=== PATIENT | male | born 1960 | race Caucasian/White ===

== ENCOUNTER 2019-07-16 04:49 | Emergency (ER) | payer OTHER ==
[~2019-07-16] VITALS: Ht 175.3 cm; Wt 105.7 kg
[2019-07-16 04:57] VITALS: Ht 175.3 cm; Wt 105.7 kg
[2019-07-16 06:47] VITALS: BP 146/91
== END 2019-07-16 06:47 | disposition home or self-care (01) ==
LOC: ED 04:49
DX: F10.20 Alcohol dependence, uncomplicated (principal); F41.9 Anxiety disorder, unspecified; F32.9 Major depressive disorder, single episode, unspecified; E78.00 Pure hypercholesterolemia, unspecified; E03.9 Hypothyroidism, unspecified; I10 Essential (primary) hypertension; Y90.9 Presence of alcohol in blood, level not specified
CPT/HCPCS: J1885

== ENCOUNTER 2019-07-17 01:49 | Emergency (ER) | payer OTHER ==
[~2019-07-17] VITALS: Ht 175.3 cm; Wt 107.0 kg
[2019-07-17 01:57] VITALS: Ht 175.3 cm; Wt 107.0 kg
[2019-07-17 04:25] VITALS: BP 142/84
== END 2019-07-17 05:19 | disposition home or self-care (01) ==
LOC: ED 01:49
DX: S00.03XA Contusion of scalp, initial encounter (principal); I10 Essential (primary) hypertension; F41.9 Anxiety disorder, unspecified; F32.9 Major depressive disorder, single episode, unspecified; E78.00 Pure hypercholesterolemia, unspecified; E03.9 Hypothyroidism, unspecified; W10.8XXA Fall (on) (from) other stairs and steps, initial encounter; Y93.89 Activity, other specified; Y92.89 Other specified places as the place of occurrence of the external cause; Y99.8 Other external cause status

== ENCOUNTER 2019-07-24 17:44 | Inpatient (IN) | payer OTHER ==
[~2019-07-24] VITALS: Ht 175.3 cm; Wt 103.4 kg
[2019-07-24 17:57] VITALS: Ht 175.3 cm; Wt 103.4 kg
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
--- NOTE | 2019-07-24 18:21 | NUR ---
AT BEDSIDE FOR MSE.
[2019-07-24 19:10] LABS: PLATELET COUNT 355 x10^3mcL (130-400)
[2019-07-24 19:14] LABS: RED CELL DISTRIBUTION WIDTH 15.1 % (11.5-14.5)
--- NOTE | 2019-07-24 19:23 | NUR ---
PROVIDED PT URINAL TO URINATE.
--- NOTE | 2019-07-24 19:34 | NUR ---
CALLED RX TO OBTAIN VALIUM 10MG, RX STATES IT IS UNABLE FROM [employer]. MADE AWARE AND WILL CHANGE ORDER.
--- NOTE | 2019-07-24 19:35 | NUR ---
PER NO ORDER FOR URINE SPECIMEN.
[2019-07-24 19:38] LABS: ALBUMIN 3.7 g/dL (3.4-5.0); ALKALINE PHOSPHATASE 127 U/L (46-116); ALT/SGPT 140 U/L (16-63); AST/SGOT 125 U/L (15-37); BILIRUBIN TOTAL 0.76 mg/dL (0.20-1.00); CALCIUM 8.1 mg/dL (8.5-10.1); CHLORIDE SERUM 99 mmol/L (98-107); CREATININE SERUM 0.9 mg/dL (0.7-1.3); GFR1 > 60 mL/min; GLUCOSE SERUM 131 mg/dL (74-106); SODIUM SERUM 140 mmol/L (136-145); TOTAL PROTEIN, SERUM 7.3 g/dL (6.4-8.2)
[2019-07-24 19:40] LABS: POTASSIUM SERUM 2.2 mmol/L (3.5-5.1)
[2019-07-24 19:43] LABS: CARBON DIOXIDE 31.2 mmol/L (21-32)
[2019-07-24] MEDS ORDERED: LISINOPRIL2.5 MG PO (20:37)
[2019-07-24] MEDS ORDERED: SYNTHROID0.05 MG PO (20:38)
[2019-07-24] MEDS ORDERED: SEROQUEL XR400 M1 PO (20:38)
[2019-07-24] MEDS ORDERED: ZOLOFT50 MG (20:38)
[2019-07-24] MEDS ORDERED: LOTREL1 CA2 PO (20:38)
[2019-07-24 21:01] LABS: CHOLESTEROL/HDL RATIO 7.5; MAGNESIUM 1.4 mg/dL (1.8-2.4)
--- NOTE | 2019-07-24 21:15 | NUR ---
REPORT GIVEN TO EL AT [id number] ON TELE FLOOR
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
--- NOTE | 2019-07-24 22:20 | NUR ---
MEDICATED PT WITH NORCO PO FOR MIGRANE (DULL; SHARP AT TIMES). WILL CONTINUE TO MONITOR. CALL LIGHT WITHIN REACH, BED IN LOWEST POSITION.
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
[2019-07-24 23:37] LABS: UA SPECIFIC GRAVITY 1.015 (1.005-1.035); microscopic required? YES; urine erythrocyte TRACE (NEGATIVE)
[2019-07-24 23:53] VITALS: BP 190/99
[2019-07-25 00:07] LABS: AMPHETAMINE QUAL UR NONE DETECTED (See below)
--- NOTE | 2019-07-25 05:00 | NUR ---
PT RESTED IN INTERVALS DURING SHIFT, NO ACUTE CHANGES OCCURRING OVERNIGHT. PT REMAINS PREOCCURPIED WITH HIS ANXIETY LEVEL, MEDICATED PT X2 WITH ATIVAN IVP 2MG. PT REPORTS IT DOES HELP ALTHOUGH STS " I KNOW ITS GOING TO COME BACK AND GET WORSE". PT NOTED WITH MINIMAL HAND TREMORS, SZ PRECUATIONS IN PLACE, HELD LIBRIUM PO LAST EVEN PER DR. YANG REQUEST. PT REMAINS NPO FOR US ABD, ALL COMFORT AND SAFETY MEASURES PROVIDED FOR, CALL LIGHT WTIHIN REACH, BED IN LOWEST POSITION, WILL CONTINUE TO MONITOR.
[2019-07-25 05:43] VITALS: BP 153/81
[2019-07-25 06:28] LABS: BASOPHIL % 0.9 % (0-2); PLATELET COUNT 369 x10^3mcL (130-400)
[2019-07-25 06:41] LABS: RED CELL DISTRIBUTION WIDTH 14.9 % (11.5-14.5)
[2019-07-25 06:54] LABS: CALCIUM 7.8 mg/dL (8.5-10.1); CARBON DIOXIDE 32.1 mmol/L (21-32); CHLORIDE SERUM 101 mmol/L (98-107); CREATININE SERUM 0.8 mg/dL (0.7-1.3); GFR1 > 60 mL/min; GLUCOSE SERUM 122 mg/dL (74-106); MAGNESIUM 1.3 mg/dL (1.8-2.4); PHOSPHOROUS 2.2 mg/dL (2.5-4.9); SODIUM SERUM 142 mmol/L (136-145)
[2019-07-25 07:05] LABS: POTASSIUM SERUM 2.6 mmol/L (3.5-5.1)
--- NOTE | 2019-07-25 07:15 | NUR ---
RECEIVED PT. IN BED A/A/O X3. NO SOB, NO N/V NOTED. PT. DENIES ANY PAIN AT THIS TIME. NS RUNNING AT 100 CC/HR VIA IV SITE AT R HAND. SEIZURE PRECAUTION MAINTAINED. BED IN LOW POS., CALL LIGHT WITHIN REACH. SIDE RAILS UP X3.
[2019-07-25 08:59] VITALS: BP 168/79
[2019-07-25 11:08] VITALS: BP 150/80
--- NOTE | 2019-07-25 12:39 | NUR ---
C/O FEELING ANXIOUS. ATIVAN 2MG IV GIVEN.
--- NOTE | 2019-07-25 13:00 | NUR ---
B/P= 165/88. APRESOLINE 10MG PO GIVEN.
[2019-07-25 14:08] VITALS: BP 134/86
[2019-07-25 16:33] VITALS: BP 142/68
--- NOTE | 2019-07-25 17:25 | NUR ---
REMAINS IN STABLE CONDITION AT THIS TIME. WILL CONTINUE TO MONITOR.
--- NOTE | 2019-07-25 18:00 | NUR ---
C/O FEELING NAUSEATED. ZOFRAN 4MG IV GIVEN.
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
--- NOTE | 2019-07-26 05:00 | NUR ---
PT RESTED IN INTERVALS DURING SHIFT, NO ACUTE CHANGES OCCURRING OVERNIGHT. PT HAS SEVERAL EPISODES OF ANXIETY, PT IS ABLE TO BE CALM DOWN BY SUPPORTIVE ADVICE AND COMFORT. PT REMAINS ON RA, DENIES SOB/CP. PT AMBULATORY ALTHOUGH CAUTIOUS D/T HE TOOK A DOSE OF SEROQUEL AND HE FEELS THE EFFECTS. PT AT FIRST VERY SKEPTICAL ABOUT TAKING HIS SEROQUEL, YET WITH SOME ENCOURAGEMENT PT WAS ABLE TO UNDERSTAND HE NEEDS TO TAPER DOWN SLOWLY WITH ANY PYSCH MEDICATION WELL BE SUPERVISED BY A PHYSICIAN IF THAT IS HIS PLAN. PT APPEARS TO BE SUFFERING FROM A FLIGHT OF IDEAS, STS HE WANTS TO STOP TAKING THE MEDICATION BUT THEN HE IS FEARFUL OF THE FUTURE. PAGED DR YANG IN REGARDS TO PSYCH EVALUATION. PENDING ORDERS AT THIS TIME. ALL COMFORT AND SAFETY MEASURES PROVIDED FOR, CALL LIGHT WTIHIN REACH, BED IN LOWEST POSITION, WILL CONTINUE TO MONITOR.
[2019-07-26 05:50] VITALS: BP 139/77
[2019-07-26 06:57] LABS: BASOPHIL % 0.4 % (0-2); PLATELET COUNT 252 x10^3mcL (130-400)
[2019-07-26 07:11] LABS: CALCIUM 8.5 mg/dL (8.5-10.1); CARBON DIOXIDE 29.3 mmol/L (21-32); CHLORIDE SERUM 102 mmol/L (98-107); CREATININE SERUM 0.9 mg/dL (0.7-1.3); GFR1 > 60 mL/min; GLUCOSE SERUM 99 mg/dL (74-106); MAGNESIUM 1.8 mg/dL (1.8-2.4); PHOSPHOROUS 4.1 mg/dL (2.5-4.9); SODIUM SERUM 138 mmol/L (136-145)
--- NOTE | 2019-07-26 07:20 | NUR ---
PT IS AAOX4. RESP EVEN AND UNLABORED. NO DISTRESS NOTED. SEIZURE PRECAUTIONS IN PLACE. TELE [address] READING NSR. IV CATH TO RH PATENT, SITE WNL. NO S/S OF INFECTION OR INFILTRATION. PT DENIES PAIN AT THIS TIME. CALL LIGHT WITHIN REACH. BED IN LOWEST POSITION.
[2019-07-26 07:23] LABS: RED CELL DISTRIBUTION WIDTH 14.7 % (11.5-14.5)
[2019-07-26 07:28] LABS: POTASSIUM SERUM 2.9 mmol/L (3.5-5.1)
--- NOTE | 2019-07-26 07:30 | NUR ---
ENDORSED ALL CARE TO DAYSHIFT NURSE, NO ACUTE DISTRESS NOTED. ALL QUESTIONS AND CONCERNS ADDRESSED, CALL LIGHT WITHIN REACH, BED IN LOWEST POSITION.
--- NOTE | 2019-07-26 07:30 | NUR ---
PT IS AAOX4. LUNG SOUNDS CTA. ON R/A. NO COUGH OR SOB NOTED. TELE [address] READING NSR. IVF RUNNING TO , SITE WNL. NO S/S OF INFECTION OR INFILTRATION. SKIN WARM AND CDI. NO EDEMA. PERIPHERAL PULSES MODERATELY PALPABLE. ABDOMEN SOFT, NONTENDER, NONDISTENDED. BOWEL SOUNDS ACTIVE. DENIES N/V, DIARRHEA AND CONSTIPATION. PT DENIES PAIN AND DISCOMFORT. CALL LIGHT WITHIN REACH. BED IN LOWEST POSITION.
--- NOTE | 2019-07-26 07:54 | NUR ---
REPORTED TO ANJELICA CEDENO NP THAT PT'S K+ = 2.9. ANJELICA STATED KLOR CON PO WILL BE ORDERED.
--- NOTE | 2019-07-26 08:40 | NUR ---
ANJELICA ECDENO NP MET WITH PT AND DISCUSSED POC. PT WILL BE EVALUATED BY P/T TODAY. PENDING P/T PT WILL POSSIBLY DISCHARGE TODAY. PT AGREED WITH POC.
[2019-07-26 08:46] VITALS: BP 123/63
--- NOTE | 2019-07-26 09:11 | NUR ---
POTASSIUM IV 40MEQ AND KLOR-CON 20MEQ PO GIVEN FOR K+= 2.9. PT DENIES C/P, PRESSURE AND PALPITATIONS. SCHEDULED MEDS GIVEN AND TOLERATED WELL. PT HAS C/O OF ANXIETY AND WAS ABLE TO USE POSITIVE SELF TALK TO ELEVIATE NEGATIVE FEELINGS. EXTRA WATER GIVEN. NO DISTRESS NOTED. CALL LIGHT WITHIN REACH.
--- NOTE | 2019-07-26 10:30 | NUR ---
PT RECEIVED P/T EVAL. GLEN, PT THERAPIST, STATES PT IS INDEPENDENT IN AMBULATION.
[2019-07-26 11:44] VITALS: BP 123/63
--- NOTE | 2019-07-26 12:43 | NUR ---
TYLENOL 650MG PO GIVEN FOR MILD H/A 10/21. SCHEDULED MEDS GIVEN AND TOLERATED WELL. PT SITTING UP AT BEDSIDE EATING LUNCH. CALL LIGHT WITHIN REACH.
--- NOTE | 2019-07-26 12:43 | NUR ---
TYLENOL 650MG PO GIVEN FOR MILD H/A 10/21. SCHEDULED MEDS GIVEN AND TOLERATED WELL. PT SITTING UP AT BEDSIDE EATING BREAKFAST. CALL LIGHT WITHIN REACH.
--- NOTE | 2019-07-26 15:31 | NUR ---
PT DISCHARGED TO HOME IN NO DISTRESS. DISCHARGE ORDERS REVIEWED. ALL FORMS SIGNED. ALL QUESTIONS AND CONCERNS ADDRESSED. TELE 12 REMOVED AND GIVEN TO BRAND ANALYST. VS: T 97.0F, HR 80, RR 18, 123/63, O2 SAT 97% ON R/A. IV CATH REMOVED FROM RH. SITE WNL. NO S/S OF INFECTION OR INFILTRATION. SITE COVERED WITH GAUZE AND BANDAID. PATIENT DENIES PAIN AND DISCOMFORT AT TIME OF DISCHARGE. ALL PERSONAL BELONGINGS TAKEN WITH PT. PT ACCOMPANIED TO LOBBY BY [employer]. PT'S FRIEND PRESENT AT THIS TIME TO DRIVE PT HOME.
== END 2019-07-26 15:38 | disposition home or self-care (01) | DRG 425 ==
LOC: ED 17:44 → DU 19:38
PROVIDERS: Emergency Medicine; ADMIT Internal Medicine
DX: E83.51 Hypocalcemia (principal); K76.0 Fatty (change of) liver, not elsewhere classified; E03.9 Hypothyroidism, unspecified; F10.239 Alcohol dependence with withdrawal, unspecified; E83.39 Other disorders of phosphorus metabolism; F41.8 Other specified anxiety disorders; Y90.0 Blood alcohol level of less than 20 mg/100 ml; I10 Essential (primary) hypertension; E78.5 Hyperlipidemia, unspecified; E78.00 Pure hypercholesterolemia, unspecified; F32.9 Major depressive disorder, single episode, unspecified; E87.6 Hypokalemia; E83.42 Hypomagnesemia; R74.0 Nonspecific elevation of levels of transaminase and lactic acid dehydrogenase [LDH]; Z68.33 Body mass index [BMI] 33.0-33.9, adult; Z90.89 Acquired absence of other organs; Z23 Encounter for immunization
CPT/HCPCS: 90658; 90732; 97116-GP; G0378; G0480; J2060; J2405; J3475; J3480; J7030; Q0092

== ENCOUNTER 2019-07-27 05:14 | Emergency (ER) | payer OTHER ==
[~2019-07-27] VITALS: Ht 175.3 cm; Wt 102.1 kg
[~2019-07-27 05:14] MED LIST: LISINOPRIL2.5 MG PO; LOTREL1 CA2 PO; SEROQUEL XR400 M1 PO; SYNTHROID0.05 MG PO; ZOLOFT50 MG
[2019-07-27 05:19] VITALS: Ht 175.3 cm; Wt 102.1 kg
[2019-07-27 06:46] VITALS: BP 156/90
== END 2019-07-27 06:46 | disposition home or self-care (01) ==
LOC: ED 05:14
DX: F41.9 Anxiety disorder, unspecified (principal); I10 Essential (primary) hypertension; F32.9 Major depressive disorder, single episode, unspecified; E78.00 Pure hypercholesterolemia, unspecified; E03.9 Hypothyroidism, unspecified